=== PATIENT | female | born 1985 | race African-American/Black ===

== ENCOUNTER 2020-02-26 00:44 | Emergency (ER) | payer MEDICAID ==
[~2020-02-26] VITALS: Ht 157.5 cm; Wt 61.7 kg
[2020-02-26 01:00] VITALS: BP 135/84
--- NOTE | 2020-02-26 01:06 | NUR ---
ED Nurse Note: Pt walked in from home, walks with a steady gait, vitals stable on RA. She is axox4. She states that she has mouth pain for about a week. States that she recived antibiotics for an abscess but that she did not experience relief from the pain. She is tearful and grimmacing on assement. She states that the swelling is less now but the pain has changed from the top left maxilla to her left mandible.
--- NOTE | 2020-02-26 01:12 | Emergency Room Report ---
History of Present Illness General Chief Complaint: Toothache Source: Patient Present Illness HPI Patient is a 34-year-old female who presents for increased tooth ache. Reports having onset of pain approximately 1 week ago. Reports is being worse over the past few days. States she had previously been started on antibiotics due to dental abscess. Reports having recent visit where she was given prescription for clindamycin 300 mg and is currently on antibiotics. Denies any fever. Denies any facial swelling currently. Reports having improved facial swelling from previous. Denies any recent trauma. Allergies: Coded Allergies: PENICILLINS (Verified Allergy, Unknown, 02/26/20) COVID-19 Screening Contact w/high risk pt: No Experienced COVID-19 symptoms?: No COVID-19 Testing performed CASH APPLICATION CLERK: No Patient History Past Medical History: see triage record Now: No Reviewed Nursing Documentation: PMH: Agreed; PSxH: Agreed Nursing Documentation-PMH Hx Asthma: Yes Review of Systems All Other Systems: negative except mentioned in HPI Physical Exam Vital Signs Date Time Temp Pulse Resp B/P (MAP) Pulse Ox O2 Delivery O2 Flow Rate FiO2 02/26/20 00:49 98.1 95 20 138/85 (102) 98 Room Air Sp02 EP Interpretation: reviewed, normal General Appearance: normal inspection, well appearing, no apparent distress, alert, GCS 15, non-toxic Head: atraumatic ENT: normal ENT inspection, hearing grossly normal, normal voice, other - multiple dental caries with exposed nerve root, no swelling Neck: normal inspection, full range of motion, supple, no bony tend Respiratory: normal inspection, lungs clear, normal breath sounds, no respiratory distress, no retraction, no wheezing Cardiovascular #1: regular rate, rhythm, no edema Gastrointestinal: normal inspection, normal bowel sounds, non tender, soft, no guarding, no hernia Genitourinary: no CVA tenderness Musculoskeletal: normal inspection, back normal, normal range of motion Neurologic: alert, responsive, speech normal, normal inspection Psychiatric: normal inspection, judgement/insight normal, mood/affect normal Medical Decision Making Diagnostic Impression: Primary Impression: Dental caries ER Course Patient presented for increased dental pain. Differential diagnosis include was not limited to dental caries, abscess, fracture among others. Patient has a benign exam and does not appear to require any imaging or laboratory testing at this time. Patient does not have any significant facial swelling. Appears that she has multiple areas of poor dentition and area of concern does not appear to be grossly infected. Patient is currently taking antibiotics. She was given prescription for topical anesthetics and Tylenol. She was advised to follow-up with recheck by a dentist for to recheck in the next few days. She is advised to return if she had increased facial swelling or other concerns. This medical record is generated with [employer] prints and drawings curator software. There may be some prints and drawings curator discrepancies related to use of this software Last Vital Signs Date Time Temp Pulse Resp B/P (MAP) Pulse Ox O2 Delivery O2 Flow Rate FiO2 02/26/20 00:49 98.1 95 20 138/85 (102) 98 Room Air Status: improved Disposition: HOME, SELF-CARE Condition: Stable Scripts Acetaminophen* (ACETAMINOPHEN EXTRA STRENGTH*) 500 Mg Tablet 500 MG ORAL Q8H PRN for Fever/Headache/Mild Pain, #30 TAB Prov: Bereket Patel MD 02/26/20 Lidocaine HCl 2% Viscous (Lidocaine HCl 2% Viscous) 100 Ml Solution 5 ML ORAL QID for pain, #100 ML Prov: Bereket Patel MD 02/26/20 Bereket Patel MD Feb 26, 2020 01:12
[2020-02-26] MEDS ORDERED: LIDOCAINE VISC100 ML ORAL (01:13)
[2020-02-26] MEDS ORDERED: ACETAMINOPHEN500 M3 ORAL (01:13)
[2020-02-26] MEDS ORDERED: Lidocaine 2% Visc 15ml soln ORAL ONE (01:15)
[2020-02-26 01:26] VITALS: BP 116/80
--- NOTE | 2020-02-26 01:27 | NUR ---
ER DISCHARGE NOTE: Patient is cleared to be discharged per ERMD, pt is aox4, on room air, with stable vital signs. pt was given dc and prescription instructions, pt was able to verbalize understanding, pt id band and iv site removed without complications. pt is able to ambulate with steady gait. pt took all belongings. Pt left with in a private car
== END 2020-02-26 01:30 | disposition home or self-care (01) ==
LOC: EMR 01:10
DX: K02.9 Dental caries, unspecified (principal); J45.909 Unspecified asthma, uncomplicated; Z88.0 Allergy status to penicillin
CPT/HCPCS: 99282